=== PATIENT | male | born 1990 | race Caucasian/White ===

== ENCOUNTER 2016-12-14 21:16 | Emergency (ER) | payer SELFPAY ==
[~2016-12-14] VITALS: Ht 182.9 cm; Wt 68.2 kg
[2016-12-14 21:24] VITALS: BP 134/75; PULSE 55
== END 2016-12-14 23:09 | disposition home or self-care (01) ==
LOC: COL.ER 21:16
DX: S60.222A Contusion of left hand, initial encounter (principal); W50.0XXA Accidental hit or strike by another person, initial encounter